=== PATIENT | male | born 1985 | race American Indian/Alaskan Native ===

== ENCOUNTER 2019-07-17 17:07 | Emergency (ER) | payer OTHER ==
[2019-07-17 17:21] VITALS: BP 123/78
--- NOTE | 2019-07-17 18:41 | Emergency Department Report ---
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 Reports no fevers chills or sweats MD Complaint: other - Related Data Previous Rx's Medication Instructions Recorded Last Taken Type Acetaminophen/Codeine [Tylenol 1 tab PO Q6H PRN #14 tab 07/17/19 Unknown Rx /Codeine # 3 tab] predniSONE [Deltasone] 50 mg PO QDAY #7 tab 07/17/19 Unknown Rx Allergies Allergy/AdvReac Type Severity Reaction Status Date / Time No Known Allergies Allergy Unverified 07/17/19 17:17 ED Review of Systems ROS: Stated complaint: RT FOOT PAIN Other details as noted in HPI Comment: All other systems reviewed and negative ED Past Medical Hx - Past Medical History Previous Medical History?: No - Surgical History Past Surgical History?: No - Social History Smoking Status: Current Every Day Smoker Substance Use Type: None - Medications Home Medications: Home Medications Medication Instructions Recorded Confirmed Last Taken Type Acetaminophen/Codeine [Tylenol 1 tab PO Q6H PRN #14 tab 07/17/19 Unknown Rx /Codeine # 3 tab] predniSONE [Deltasone] 50 mg PO QDAY #7 tab 07/17/19 Unknown Rx ED Physical Exam - General Limitations: No Limitations - Neck Neck exam: Present: normal inspection - Respiratory Respiratory exam: Present: normal lung sounds bilaterally. Absent: respiratory distress - Extremities Exam Extremities exam: Present: tenderness, normal capillary refill, other (The tenderness along the plantar surface of the foot with palpation and various range of motion. No heel pain. No Ernestina's deformity no tenderness to the fifth metatarsal. No evidence of any plantar wart is noted. No broken skin no cellulitis) ED Course Vital Signs 07/17/19 17:17 Temperature 98 F Pulse Rate 65 Respiratory 18 Rate Blood Pressure 123/78 O2 Sat by Pulse 100 Oximetry Critical care attestation.: If time is entered above; I have spent that time in minutes in the direct care of this critically ill patient, excluding procedure time. ED Disposition Clinical Impression: Plantar fasciitis of right foot Disposition: DC- TO HOME OR SELFCARE Is pt being admited?: No Does the pt Need Aspirin: No Condition: Stable Instructions: Plantar Fasciitis (ED) Additional Instructions: Obtain a nocturnal plantar fasciitis splint to wear during hours of wrist Prescriptions: predniSONE [Deltasone] 50 mg PO QDAY #7 tab Acetaminophen/Codeine [Tylenol /Codeine # 3 tab] 1 tab PO Q6H PRN #14 tab PRN Reason: foot pain Referrals: PRIMARY CARE, [Primary Care Provider] - 3-5 Days KAYLAH MCDERMOTT DPM [Staff Physician] - 3-5 Days YUE NIELSON MD [Staff Physician] - 3-5 Days RON GERBER DPM [Staff Physician] - 3-5 Days
== END 2019-07-17 18:56 | disposition home or self-care (01) ==
LOC: ED 17:07
DX: M72.2 Plantar fascial fibromatosis (principal); M79.671 Pain in right foot; F17.200 Nicotine dependence, unspecified, uncomplicated; Z79.899 Other long term (current) drug therapy
CPT/HCPCS: 99282